=== PATIENT | male | born 1965 | race Caucasian/White ===

== ENCOUNTER 2024-03-27 08:29 | Day surgery (SDC) | payer BC ==
[2024-03-23 12:36] VITALS: BMI 25.0
[2024-03-27 10:59] VITALS: BP 110/63; RESP 16; TEMP 98.1
[2024-03-27 11:15] VITALS: PULSE 62
== END 2024-03-27 11:17 | disposition home or self-care (01) ==
LOC: FASU-ENDO 08:29
PROVIDERS: ATTEND Internal Medicine Gastroenterology
PROC: 0DBK8ZX Excision of Ascending Colon, Via Natural or Artificial Opening Endoscopic, Diagnostic (ICD-10-PCS; principal; 2024-03-27 10:24)
DX: Z12.11 Encounter for screening for malignant neoplasm of colon (principal); D12.2 Benign neoplasm of ascending colon; K57.30 Diverticulosis of large intestine without perforation or abscess without bleeding; K64.8 Other hemorrhoids
CPT/HCPCS: 88305-TC